=== PATIENT | female | born 1945 | race Caucasian/White ===

== ENCOUNTER 2017-08-05 13:51 | Outpatient (CLI) | payer MEDICARE, BC | END 2017-08-05 13:52 | disposition home or self-care (01) | LOC: BICMAMMO 13:51 | PROVIDERS: ATTEND Internal Medicine | DX: Z12.31 Encounter for screening mammogram for malignant neoplasm of breast (principal); Z80.3 Family history of malignant neoplasm of breast; Z85.820 Personal history of malignant melanoma of skin | CPT/HCPCS: 77063; 77067; 77080 ==

== ENCOUNTER 2018-09-15 13:33 | Outpatient (CLI) | payer MEDICARE, BC ==
--- NOTE | 2018-09-15 14:19 | MMO ---
Bilateral MAMMO Bilat Screen [id number]. CLINICAL HISTORY: Patient is 73 years old and is seen for screening. The patient has the following family history of breast cancer: mother, at age 66 and maternal grandmother, at age 48. The patient has a history of melanoma in 2009. VIEWS: The views performed were: bilateral craniocaudal with tomosynthesis and bilateral mediolateral oblique with tomosynthesis. FILMS COMPARED: The present examination has been compared to prior imaging studies performed at [facility] on 05/03/2010, 06/14/2011, 02/17/2013, 08/23/2014 and 08/05/2017, and at [facility] on 09/08/2008. MAMMOGRAM FINDINGS: There are scattered fibroglandular densities. There are no suspicious masses, suspicious calcifications, or new areas of architectural distortion. IMPRESSION: THERE IS NO MAMMOGRAPHIC EVIDENCE OF MALIGNANCY. A ROUTINE FOLLOW-UP MAMMOGRAM IN 1 YEAR IS RECOMMENDED. THE RESULTS OF THIS EXAM WERE SENT TO THE PATIENT. ACR BI-RADS Category 1 - Negative MAMMOGRAPHY NOTE: 1. A negative mammogram report should not delay a biopsy if a dominant of clinically suspicious mass is present. 2. Approximately 10% to 15% of breast cancers are not detected by mammography. 3. Adenosis and dense breasts may obscure an underlying neoplasm.
--- NOTE | 2018-09-15 14:56 | BD ---
BONE DENSITOMETRY USING DEXA: HISTORY: A 73-year-old female with screening for osteoporosis. LUMBAR SPINE BMD (g/cm2) T-SCORE Z-SCORE RIGHT HIP NECK 0.631 -2.0 0.1 TOTAL 0.919 -0.2 1.5 LEFT HIP NECK 0.620 -2.1 0.0 TOTAL 0.890 -0.4 1.3 IMPRESSION: Osteopenia. POS: [facility]
== END 2018-09-15 13:34 | disposition home or self-care (01) ==
LOC: BICMAMMO 13:33
PROVIDERS: ATTEND Internal Medicine
DX: Z12.31 Encounter for screening mammogram for malignant neoplasm of breast (principal); M81.0 Age-related osteoporosis without current pathological fracture; M85.851 Other specified disorders of bone density and structure, right thigh; M85.852 Other specified disorders of bone density and structure, left thigh
CPT/HCPCS: 77063; 77067; 77080